=== PATIENT | male | born 1980 | race Native Hawaiian/Other Pacific Islander ===

== ENCOUNTER 2016-11-18 20:46 | Emergency (ER) | payer BC ==
[~2016-11-18] VITALS: Ht 193 cm; Wt 75.3 kg
== END 2016-11-18 22:08 | disposition home or self-care (01) ==
LOC: ED 20:46
DX: L03.032 Cellulitis of left toe (principal); S92.422A Displaced fracture of distal phalanx of left great toe, initial encounter for closed fracture
CPT/HCPCS: 99281